=== PATIENT | female | born 1965 | race Caucasian/White ===

== ENCOUNTER 2025-05-28 05:15 | Inpatient (IN) | payer BC, SELFPAY ==
[2025-05-27 19:08] VITALS: BP 94/66
[2025-05-27 19:42] LABS: Urine Character Clear (Clear)
[2025-05-27 19:49] LABS: Urine Squamous Cell 0-2 /LPF (Few)
[2025-05-27 19:50] LABS: Urine Red Blood Cell 70-80 /HPF (0-2)
[2025-05-27 19:57] LABS: ALT (SGPT) 22 U/L (0-35); AST (SGOT) 31 U/L (14-36); Albumin 4.9 g/dl (3.5-5.0); Alkaline Phosphatase 84 U/L (38-126); Blood Urea Nitrogen 19 mg/dl (7-17); Calcium 9.9 mg/dl (8.4-10.2); Carbon Dioxide 19 mmol/L (22-30); Chloride 108 mmol/L (98-107); Glucose 128 mg/dl (70-99); Lipase 85 U/L (23-300); Potassium 4.4 mmol/L (3.5-5.1); Sodium 137 mmol/L (135-145); Total Protein 8.2 g/dl (6.3-8.2); eGFR 47.08
[2025-05-27 19:59] LABS: Hematocrit 43.5 % (37.0-47.0); Hemoglobin 15.1 g/dL (12.0-16.0); Mean Corp Hgb Conc. 34.7 g/dL (33.0-37.0); Mean Corpuscular Volume 95.6 fL (81.0-99.0); Red Cell Dist. Width 12.9 % (11.5-14.5)
[2025-05-27 20:00] LABS: Nucleated Red Blood Cells % 0 %
[2025-05-27] MEDS: ZOFRAN 4 MG IV (21:46)
[2025-05-27] MEDS: DILAUDID 0.5 MG IV (21:47)
[2025-05-27] MEDS: NSS 500 IV (21:47)
[2025-05-27 21:50] VITALS: BP 122/62
[2025-05-27 22:00] VITALS: BP 107/59
[2025-05-27] MEDS: SOLU-CORTEF 200 MG IV (22:10)
[2025-05-27] MEDS: OMNIPAQUE 50 ML PO (22:10)
[2025-05-27 23:00] VITALS: BP 109/62
[2025-05-27] MEDS: ZOSYN 100 IV (23:04)
[2025-05-27] MEDS: BENADRYL 50 MG IV (23:13)
--- NOTE | 2025-05-27 23:47 | ED.GENMED ---
History of Present Illness
<Edelmira Paez NP - Last Filed: 05/28/25 16:27>
General
Chief Complaint: Abdominal Pain
Source: patient
Exam Limitations: none
Time Seen by Provider: 05/27/25 21:17
Nursing documentation reviewed up to this point in time: agreed with
History of Present Illness
History of Present Illness:
Patient to ED wtih complaint of worsening left sided abd. pain. Symptoms started on tuesday but pain was intermittent. SHe was seen on Tuesday in ED in [place]. Had CT of abd completed - reports no findings to explain her pain. SHe was plac ed on
Cipro for suspected UTI. States pain has continued to worsen. Pain is now constant. +nausea, no v/d. Brought to ED by family for eval.
Past History
<Edelmira Paez NP - Last Filed: 05/28/25 16:27>
Past History
ED Past Medical History: CHF and Other (cardiomyopathy)
ED Past Surgical History: Other (splenectomy)
Social History
Tobacco: Non-smoker
Alcohol: None
Personal:
Living: with family
Employment: Employed
Family History
Family History: Negative Diabetes, Hypertension, Early CAD, Asthma or Cancer
Review of Systems
<Edelmira Paez NP - Last Filed: 05/28/25 16:27>
Review of Systems
Allergies reviewed?: Yes
All Other Systems: ROS reviewed and negative except as documented in HPI and ROS
Constitutional: Reports no symptoms
EENT: Reports no symptoms
Respiratory: Reports no symptoms
Cardiac: Reports no symptoms
ABD/GI: Reports abdominal pain (left abd pain)
: Reports no symptoms
Musculoskeletal: Reports no symptoms
Skin: Reports no symptoms
Neurological: Reports weakness
Psychiatric: Reports no symptoms
Phy Exam
<Edelmira Paez NP - Last Filed: 05/28/25 16:27>
General Physical Exam
General Presentation: well appearing and no apparent distress
General age: appears stated age
General Skin: warm and dry
General Habitus: normal
General Mental: alert
General Hydration: appears well hydrated
Cardiovascular Exam
Cardiovascular Exam: regular rate/rhythm and no edema
Pulmonary Exam
Pulmonary Exam: lungs clear and no respiratory distress
Gastrointestinal Exam
Gastrointestinal Exam: normal bowel sounds, soft, no organomegaly, no pulsatile mass, non distended and no cva tenderness
Palpation: left upper quadrant: Moderate tenderness, left lower quadrant: Moderate tenderness, right upper quadrant: No tenderness and right lower quadrant: No tenderness
Musculoskeletal Exam
Musculoskeletal Exam: full ROM and neuro vasc intact
Skin Exam
Skin Exam: normal color, warm/dry and no rash
Psychiatric Exam
Psychiatric Exam: normal mood/affect
Course
<Edelmira Paez PACKING ATTENDANT - Last Filed: 05/28/25 16:27>
Orders/Labs/Results
Orders:
Orders
05/27/25 19:30
Complete Blood Count/With Diff Urgent
Comprehensive Metabolic Panel Urgent
Lactic Acid Urgent
Lipase Urgent
Urine Microscopic Reflex Cult Urgent
Urine Reflex Culture from UA [Urinalysis Reflex To Culture] Urgent
Date Specimen was Collected: 05/27/25
Time Specimen was Collected: 19:12
Urine Culture Urgent
ARLYN Source: U
Specimen Description:
Date Specimen was Collected: 05/27/25
Time Specimen was Collected: 19:12
05/27/25 21:37
0.9% Sodium Chloride 500 ml [Nss] 500 ml IV BOLUS
HYDROmorphone [Dilaudid] 0.5 mg IV NOW STA
05/27/25 21:43
Ondansetron Injectable [Zofran] 4 mg .ROUTE .[facility]
05/27/25 21:46
Ondansetron Injectable [Zofran] 4 mg IV NOW STA
05/27/25 22:01
Diphenhydramine [Benadryl] 50 mg IV NOW STA
Hydrocortisone Sod Succinate [Solu-Cortef] 200 mg IV NOW STA
Iohexol [Omnipaque] See Protocol PO NOW STA
05/27/25 22:31
Piperacillin/Tazo 4.5 Gram [Zosyn] 4.5 gram in 100 ml IV NOW
05/27/25 22:54
Vancomycin [Vancocin] 1,500 mg 0.9% Sodium Chloride 500 ml [Nss] 500 ml IV NOW
05/28/25 00:10
CT Abd/pel W Iv And Oral Contr Urgent
Reason For Exam: left sided abd pain
05/28/25 02:38
Tamsulosin [Flomax] 0.4 mg PO NOW STA
05/28/25 04:38
Admit/Transfer Patient As Directed
Co-Sign Provider:
Level of Care: Inpatient admission
Assign to:: Medical/Surgical
Physician / Group: Freddie/Hospitalist
Diagnosis: UTI with obstructing renal stone 5 mm, left-sided hydroureteronephrosis
Reason for Hospitalization: UTI with obstructing renal stone 5 mm, left-sided hydroureteronephrosis
Expected length of stay greater than two midnights?: Yes
ELOS- Estimated Length of Stay in days: 3
I certify the patient meets the requirements for IP care: Yes
PRN Pain Medication Management As Directed
May give lesser potent ordered pain med per pt: Yes
preference::
Protocol:: Medication orders for pain may be administered in a
manner that supports deferring to patient preference
when the pt is:
- Requesting an ordered lesser potent pain medication.
Least to most potent pain medications are defined
as: acetaminophen < NSAID < tramadol < opioids
(morphine, oxycodone, hydromorphone).
- Requesting a lesser dose of the same medication IF
ORDERED.
- Requesting a less intrusive route of administration
if both routes are prescribed by the provider (PO <
IV).
05/28/25 04:42
Code Status As Directed
Resuscitation Status: Full Code
05/28/25 05:21
0.9% Sodium Chloride 500 ml [Nss] 500 ml IV 50 mls/hr
Bisacodyl [Dulcolax] 10 mg RECTAL [id number] PRN
Docusate W/Senna [Senokot-S] 1 tablet PO BIDPRN PRN
HYDROmorphone [Dilaudid] 0.5 mg IV Q4HPRN PRN
Ondansetron Injectable [Zofran] 4 mg IV Q6HPRN PRN
Polyethylene Glycol Powder [Miralax] 17 grams PO DAILYPRN PRN
05/28/25 05:21
UROLOGY CONSULT Routine
Consulting Provider: Rj Saleh
Was physician already notified: Yes
Comment: obstructing kidney stone, hydroureteronephr, UTI, splenectomy hx
Activity As Directed
Activity Level: As Tolerated
Pneumatic Compression Sleeves As Directed
Type: Knee high
Vital Signs As Directed
Frequency: Per unit guidelines
Pulse Ox/spot Check [RESP] Routine
Quantity: 1
DX Deep Vein Thrombosis Video Routine
05/28/25 05:41
Basic Metabolic Panel IN AM
Complete Blood Count/With Diff IN AM
05/28/25 Breakfast
NPO
Allow oral meds: Yes
Allow clear liquids: No
Piperacillin/Tazo 3.375 Gram [Zosyn] 3.375 gram in 50 ml IV Q6H
05/28/25 08:00
Bupropion(24Hr)Extended Releas [WELLBUTRIN XL (24 hour extended release)] 150 mg PO DAILY
Carvedilol [Coreg] 25 mg PO BID
Tamsulosin [Flomax] 0.4 mg PO DAILY
05/28/25 12:00
Sacubitril 24/Valsartan 26 [Entresto 24 mg/26 mg] 1 tab PO BID
Abnormal Lab Results
05/27/25
19:30
WBC 14.8 H 10^3/uL
(4.8-10.8)
MCH 33.2 H pg
(27.0-31.0)
Absolute Neuts (auto) 13.0 H 10^3/uL
(1.4-6.5)
Absolute Lymphs (auto) 1.1 L 10^3/uL
(1.2-3.4)
Neutrophils % 87.6 H %
(42.2-75.2)
Lymphocytes % 7.4 L %
(20.5-51.1)
Chloride 108 H mmol/L
(98-107)
Carbon Dioxide 19 L mmol/L
(22-30)
BUN 19 H mg/dl
(7-17)
Creatinine 1.3 H mg/dL
(0.6-1.0)
Glucose 128 H mg/dl
(70-99)
Lactic Acid 2.1 H mmol/L
(0.7-2.0)
Urine Ketones 3+ A
(Negative)
Ur Occult Blood Reflex 4+ A
(Negative)
Leukocyte Esterase Rfl 1+ A
(Negative)
Urine RBC 70-80 A /HPF
(0-2)
Urine Bacteria (Reflex) Moderate A
(Negative)
Urine Albumin (Reflex) 2+ A
(Neg - Trace)
05/27/25 19:30
05/27/25 19:30
Vital Signs
Initial and Last Documented VS:
Initial Vital Signs
Temp Pulse Resp BP Pulse Ox
98.0 F 81 20 94/66 99
05/27/25 19:08 05/27/25 19:08 05/27/25 19:08 05/27/25 19:08 05/27/25 19:08
Last Documented Vital Signs
Temp Pulse Resp BP Pulse Ox
97.8 F 70 12 88/52 99
05/28/25 15:00 05/28/25 15:00 05/28/25 15:00 05/28/25 15:00 05/28/25 15:00
<Dave Garcia, DO - Last Filed: 05/28/25 02:43>
Orders/Labs/Results
Orders:
Orders
05/27/25 19:30
Complete Blood Count/With Diff Urgent
Comprehensive Metabolic Panel Urgent
Lactic Acid Urgent
Lipase Urgent
Urine Microscopic Reflex Cult Urgent
Urine Reflex Culture from UA [Urinalysis Reflex To Culture] Urgent
Date Specimen was Collected: 05/27/25
Time Specimen was Collected: 19:12
Urine Culture Urgent
ARLYN Source: U
Specimen Description:
Date Specimen was Collected: 05/27/25
Time Specimen was Collected: 19:12
05/27/25 21:37
0.9% Sodium Chloride 500 ml [Nss] 500 ml IV BOLUS
HYDROmorphone [Dilaudid] 0.5 mg IV NOW STA
05/27/25 21:43
Ondansetron Injectable [Zofran] 4 mg .ROUTE .[facility]
05/27/25 21:46
Ondansetron Injectable [Zofran] 4 mg IV NOW STA
05/27/25 22:01
Diphenhydramine [Benadryl] 50 mg IV NOW STA
Hydrocortisone Sod Succinate [Solu-Cortef] 200 mg IV NOW STA
Iohexol [Omnipaque] See Protocol PO NOW STA
05/27/25 22:31
Piperacillin/Tazo 4.5 Gram [Zosyn] 4.5 gram in 100 ml IV NOW
05/27/25 22:54
Vancomycin [Vancocin] 1,500 mg 0.9% Sodium Chloride 500 ml [Nss] 500 ml IV NOW
05/28/25 00:10
CT Abd/pel W Iv And Oral Contr Urgent
Reason For Exam: left sided abd pain
05/28/25 02:38
Tamsulosin [Flomax] 0.4 mg PO NOW STA
05/28/25 04:38
Admit/Transfer Patient As Directed
Co-Sign Provider:
Level of Care: Inpatient admission
Assign to:: Medical/Surgical
Physician / Group: Freddie/Hospitalist
Diagnosis: UTI with obstructing renal stone 5 mm, left-sided hydroureteronephrosis
Reason for Hospitalization: UTI with obstructing renal stone 5 mm, left-sided hydroureteronephrosis
Expected length of stay greater than two midnights?: Yes
ELOS- Estimated Length of Stay in days: 3
I certify the patient meets the requirements for IP care: Yes
PRN Pain Medication Management As Directed
May give lesser potent ordered pain med per pt: Yes
preference::
Protocol:: Medication orders for pain may be administered in a
manner that supports deferring to patient preference
when the pt is:
- Requesting an ordered lesser potent pain medication.
Least to most potent pain medications are defined
as: acetaminophen < NSAID < tramadol < opioids
(morphine, oxycodone, hydromorphone).
- Requesting a lesser dose of the same medication IF
ORDERED.
- Requesting a less intrusive route of administration
if both routes are prescribed by the provider (PO <
IV).
05/28/25 04:42
Code Status As Directed
Resuscitation Status: Full Code
05/28/25 05:21
0.9% Sodium Chloride 500 ml [Nss] 500 ml IV 50 mls/hr
Bisacodyl [Dulcolax] 10 mg RECTAL [id number] PRN
Docusate W/Senna [Senokot-S] 1 tablet PO BIDPRN PRN
HYDROmorphone [Dilaudid] 0.5 mg IV Q4HPRN PRN
Ondansetron Injectable [Zofran] 4 mg IV Q6HPRN PRN
Polyethylene Glycol Powder [Miralax] 17 grams PO DAILYPRN PRN
05/28/25 05:21
UROLOGY CONSULT Routine
Consulting Provider: Rj Saleh
Was physician already notified: Yes
Comment: obstructing kidney stone, hydroureteronephr, UTI, splenectomy hx
Activity As Directed
Activity Level: As Tolerated
Pneumatic Compression Sleeves As Directed
Type: Knee high
Vital Signs As Directed
Frequency: Per unit guidelines
Pulse Ox/spot Check [RESP] Routine
Quantity: 1
DX Deep Vein Thrombosis Video Routine
05/28/25 05:41
Basic Metabolic Panel IN AM
Complete Blood Count/With Diff IN AM
05/28/25 Breakfast
NPO
Allow oral meds: Yes
Allow clear liquids: No
Piperacillin/Tazo 3.375 Gram [Zosyn] 3.375 gram in 50 ml IV Q6H
05/28/25 08:00
Bupropion(24Hr)Extended Releas [WELLBUTRIN XL (24 hour extended release)] 150 mg PO DAILY
Carvedilol [Coreg] 25 mg PO BID
Tamsulosin [Flomax] 0.4 mg PO DAILY
05/28/25 12:00
Sacubitril 24/Valsartan 26 [Entresto 24 mg/26 mg] 1 tab PO BID
Abnormal Lab Results
05/27/25
19:30
WBC 14.8 H 10^3/uL
(4.8-10.8)
MCH 33.2 H pg
(27.0-31.0)
Absolute Neuts (auto) 13.0 H 10^3/uL
(1.4-6.5)
Absolute Lymphs (auto) 1.1 L 10^3/uL
(1.2-3.4)
Neutrophils % 87.6 H %
(42.2-75.2)
Lymphocytes % 7.4 L %
(20.5-51.1)
Chloride 108 H mmol/L
(98-107)
Carbon Dioxide 19 L mmol/L
(22-30)
BUN 19 H mg/dl
(7-17)
Creatinine 1.3 H mg/dL
(0.6-1.0)
Glucose 128 H mg/dl
(70-99)
Lactic Acid 2.1 H mmol/L
(0.7-2.0)
Urine Ketones 3+ A
(Negative)
Ur Occult Blood Reflex 4+ A
(Negative)
Leukocyte Esterase Rfl 1+ A
(Negative)
Urine RBC 70-80 A /HPF
(0-2)
Urine Bacteria (Reflex) Moderate A
(Negative)
Urine Albumin (Reflex) 2+ A
(Neg - Trace)
05/27/25 19:30
05/27/25 19:30
Vital Signs
Initial and Last Documented VS:
Initial Vital Signs
Temp Pulse Resp BP Pulse Ox
98.0 F 81 20 94/66 99
05/27/25 19:08 05/27/25 19:08 05/27/25 19:08 05/27/25 19:08 05/27/25 19:08
Last Documented Vital Signs
Temp Pulse Resp BP Pulse Ox
97.8 F 70 12 88/52 99
05/28/25 15:00 05/28/25 15:00 05/28/25 15:00 05/28/25 15:00 05/28/25 15:00
<Edelmira Paez NP - Last Filed: 05/28/25 16:27>
*Pulse Oximetry
SaO2: 99
Oxygen Mode of Delivery: Room air
Patient hypoxic: no
*Critical Care Note
Total Time (30-74mins, 75-104mins- exclusive of procedures): Not Applicable
<Edelmira Paez NP - Last Filed: 05/28/25 16:27>
Update Note
Update Note:
Patient to ED wtih complaint of worsening left sided abd. pain. Pain started on Tuesday intermittently and is now constant. +nause, no vomiting or diarrhea. Denies fever. Labs reviewed. WBC 14 with lactic 2.1 IV fluids as well as antibiotics
ordered. VSS in ED, she remains awake and alert. Comfortable after IV pain medications. CT of abdomen/pelvis is pending.
ED Attending Note
<Edelmira Paez NP - Last Filed: 05/28/25 16:27>
-
Portions of this chart may have been created with voice recognition software.� Occasional wrong word or��sound alike� substitutions may have occurred due to the inherent limitations of voice recognition software.
<Dave Garcia DO - Last Filed: 05/28/25 02:43>
ED Attending Note
Patient seen and examined by attending physician: Yes
I performed the substantive portion of visit, reviewed & personally made and approve the management plan that is documented in note by myself or RICHAR.: Yes
ED Attending Note:
I have seen and evaluated the patient with a [id number] encounter. I have spoken to the advance practicer provider and involved in the medical history, the physical exam, medical decision making.
Evaluation and management service: agree unless noted differently below.
Results interpretation: agree unless noted differently below.
Focused HPI: 60-year-old female presenting with left lower quadrant pain. Initially, the pain was coming and going but now is pretty constant. This is associated with nausea. She denies fevers. Patient states this is similar to prior kidney stone
Physical exam: Sitting bed comfortably. No peritonitic signs
Medical Decision Making: CT shows distal left ureteral stone. Patient was already started on Zosyn by the PACKING ATTENDANT. Will give dose of Flomax and admit for pain control and urology evaluation
Discharge Plan
Departure
Patient Disposition: Admit
Date of Disposition: 05/28/25
Time of Disposition: 02:42
Presentation/result/management discussed w/ accepting MD/DO: Hospitalist
Patient with high blood pressure during this ER visit?: No
Condition: Fair
Covid-19: Not Applicable
Discharge Problem:
Kidney stone on left side
Interventions
Interventions:
*Risk Screen - Suicide Last Done: 05/27/25 21:52
*General Assessment Last Done: 05/27/25 19:08
*Neglect/Abuse Screening Last Done: 05/27/25 21:52
*ED- Fall Risk Assessment Last Done: 05/27/25 21:52
*ED COVID-19 Vaccine History Last Done: 05/27/25 21:52
*Nursing Disposition Last Done: 05/28/25 07:05
ZT-Stsgsq-Pgvmvtiyus Assessment Last Done: 05/27/25 23:10
Discharge Date and Time
Discharge Date/Time: 05/28/25 08:14
[2025-05-28] VITALS (12 sets, daily range): BP systolic 88–114; BP diastolic 50–68; BMI 23.4
[2025-05-28] MEDS: VANCOCIN 530 MG IV (00:24)
[2025-05-28] MEDS: FLOMAX 0.4 MG PO ×2 (02:45→18:16)
--- NOTE | 2025-05-28 04:06 | HPS.HSE ---
Addendum entered and electronically signed by Kalpana Frazier DO 05/28/25 05:07:
#BRAYAN - creat 1.3 (last creat 0.8), gentle IV hydration due to hx of cardiomyopathy, renally dose IV abx, and repeat BMP in am
Original Note:
Family Physician
-
Family Physician: NOT KNOW UNKNOWN - PT DOES
Chief Complaint
-
abdominal pain, CVA tenderness on right, and vomiting
History of Present Illness
The patient is a 60-year-old woman with past medical history significant for cardiomyopathy and splenectomy for splenic artery aneurysm in 2007, who presented to the emergency department secondary to worsening left lower quadrant abdominal pain
associated with left flank pain that she has had over the past 3 days. [place] care center there, and they diagnosed her with UTI and constipation. They told her to have a clear liquid diet for which she has been
on for the past 2 days with very little oral intake. She was also taking a bowel regimen for constipation. Over the past 24 hours her abdominal pain has worsened in the left lower quadrant associated with left flank pain and vomiting. In the ED,
CT scan of the abdomen and pelvis positive for 5 mm obstructing distal left ureteral calculus immediately proximal to the UVJ with mild to moderate left-sided hydroureteronephrosis and mild perinephric stranding. Lactate 2.1 WBC 14.8
Treatment in the ED-IV fluid bolus 500 mL, IV Dilaudid 0.5, IV Zofran 4 mg, IV Benadryl 50 mg, Solu-Cortef 200 mg IV prior to contrast, IV Zosyn 7, IV vancomycin, Flomax 0.4 mg
Medical History
Past Medical History
Past Medical History: Reports CHF (Idiopathic cardiomyopathy) and Other (Left bundle branch block, splenic artery aneurysm)
Past Surgical History: Reports Other (Splenectomy)
Social History
Tobacco: Non-smoker
Alcohol: None
Personal:
Living: With Family
Employment: Employed
Family History
Family History: Not pertinent
Allergies / Home Medications
Allergies reflects when Allergies were last updated in [facility].
Home Medications with original date entered in [facility]
Allergy/Medication List:
Allergies
Allergy/AdvReac Type Severity Reaction Status Date / Time
latex Allergy Rash Verified 05/27/25 19:07
levofloxacin (From Levaquin) Allergy Unknown Verified 05/27/25 19:07
Shellfish *RETIRED-08/08/12 Allergy Anaphylaxis Verified 05/27/25 19:07
nuts Allergy Anaphylaxis Uncoded 05/27/25 19:07
Home Medications
carvedilol 25 mg tablet (Coreg) 25 mg PO BID 10/27/12
cetirizine 10 mg tablet 10 mg PO HS 10/27/12
promethazine 25 mg tablet 25 mg PO Q6HPRN PRN nausea and vomiting #10 tabs 03/30/14
bupropion HCl 150 mg 24 hr tablet, extended release 150 mg PO DAILY 05/28/25
cholecalciferol (vitamin D3) 25 mcg (1,000 unit) capsule (Vitamin D3) 25 mcg PO DAILY 05/28/25
sacubitril 24 mg-valsartan 26 mg tablet (Entresto) 1 tab PO BID 05/28/25
Review of Systems
-
A 12 point ROS was completed and negative except as noted: Yes
Physical Exam
Vital Signs
Vital Signs
Temp Pulse Resp BP Pulse Ox
97.9 F 74 14 113/68 97
05/27/25 23:20 05/28/25 00:15 05/28/25 00:15 05/28/25 00:00 05/28/25 00:15
Physical Exam
General: Well Developed, Well Nourished, No Apparent Distress, Comfortable and Conversant
HEENT: NormoCephalic, Anicteric and Moist mucous membranes
Respiratory: Clear
Cardiac: S1/S2 and Regular Rhythm
GI: Soft and Tender (Tenderness in the left lower quadrant and left CVA tenderness)
Musculoskeletal: No Clubbing, No Cyanosis and No Edema
Skin: Warm and Dry
Neuro: AO x 3 and No Motor Deficits
Psych: Calm
Laboratory Results
-
05/27/25 19:30
05/27/25:
Laboratory Results
Lactic Acid 2.1 mmol/L (0.7-2.0) H 05/27/25:30
Total Bilirubin 1.3 mg/dl (0.2-1.3) 05/27/25
AST 31 U/L (14-36) 05/27/25
ALT 22 U/L (0-35) 05/27/25
Alkaline Phosphatase 84 U/L (38-126) 05/27/25:
Lipase 85 U/L (23-300) 05/27/25:
Data Reviewed
-
CT Scan: Report Reviewed by me (preliminary report)
Impression/Plan
-
IMPRESSION:The patient is a 60-year-old woman with past medical history significant for cardiomyopathy and splenectomy for splenic artery aneurysm in 2007, who presented to the emergency department secondary to worsening left lower quadrant
abdominal pain associated with left flank pain that she has had over the past 3 days. [place] the [place] urgent care center there, and they diagnosed her with UTI and constipation. They told her to have a clear liquid diet for
which she has been on for the past 2 days with very little oral intake. She was also taking a bowel regimen for constipation. Over the past 24 hours her abdominal pain has worsened in the left lower quadrant associated with left flank pain and
vomiting. In the ED, CT scan of the abdomen and pelvis positive for 5 mm obstructing distal left ureteral calculus immediately proximal to the UVJ with mild to moderate left-sided hydroureteronephrosis and mild perinephric stranding. Lactate 2.1
WBC 14.8
Treatment in the ED-IV fluid bolus 500 mL, IV Dilaudid 0.5, IV Zofran 4 mg, IV Benadryl 50 mg, Solu-Cortef 200 mg IV prior to contrast, IV Zosyn 7, IV vancomycin, Flomax 0.4 mg
# Nephrolithiasis associated with perinephritic stranding and hydroureteronephrosis, with concern for urinary tract infection, in the setting of leukocytosis and splenectomy history
-Urinalysis positive for 1+ leuk esterase, moderate bacteria, 70-80 RBCs
- Continue IV Zosyn for now
-Consultation to urology-placed by ED physician
-Continue n.p.o. status pending urology recommendations
-IV fluids, gentle hydration given history of cardiomyopathy
-Flomax, continue for now
-CT scan of the abdomen and pelvis positive for 5 mm obstructing distal left ureteral calculus immediately proximal to the UVJ, with mild to moderate left-sided hydroureteronephrosis and mild perinephric stranding.
# History of splenectomy, splenic artery aneurysm
- Continue broad-spectrum antibiotic coverage
# Cardiomyopathy
- Continue Coreg
- Continue Entresto
DVT prophylaxis-SCDs
Full code
[2025-05-28] MEDS: FLUSH (NSS) 1 FLUSH IV (05:43)
[2025-05-28 05:54] LABS: Hematocrit 39.4 % (37.0-47.0); Hemoglobin 13.4 g/dL (12.0-16.0); Mean Corp Hgb Conc. 34.0 g/dL (33.0-37.0); Mean Corpuscular Volume 97.8 fL (81.0-99.0); Nucleated Red Blood Cells % 0 %; Platelet Count 221 10^3/uL (130-400); Red Cell Dist. Width 13.1 % (11.5-14.5)
[2025-05-28] MEDS: NSS 500 IV (06:10)
[2025-05-28] MEDS: ZOSYN 50 IV ×3 (06:16→18:16)
[2025-05-28 06:19] LABS: Blood Urea Nitrogen 18 mg/dl (7-17); Calcium 9.1 mg/dl (8.4-10.2); Carbon Dioxide 15 mmol/L (22-30); Chloride 111 mmol/L (98-107); Estimated Creatinine Clearance 34 ml/min; Glucose 122 mg/dl (70-99); Potassium 4.4 mmol/L (3.5-5.1); Sodium 137 mmol/L (135-145); eGFR 39.65
--- NOTE | 2025-05-28 08:56 | W.PN.UPDATE ---
Update Note
Progress Note Update
Obstructing distal left ureteral stone w/ hydronephrosis
Leukocytosis
BRAYAN
Non-toxic, afebrile
Denies LLQ pelvic pain this AM
Discussed inpatient MET x24 hrs w/ surgical intervention if no passage vs. surgical intervention today.
Plan:
- Continue tamsulosin 0.4 mg qhs to facilitate stone passage
- Generous PO fluid intake (minimize IVF due to h/o iatrogenic cardiomyopathy)
- Continue IV antibiotics pending UCx
- NPO@MN - possible OR tomorrow for left ULS if no stone passage
- KUB this AM (ordered)
D/w patient and mother.
[2025-05-28] MEDS: COREG 25 MG PO (09:20)
[2025-05-28] MEDS: WELLBUTRIN XL (24 hour extended release) 150 MG PO (09:21)
--- NOTE | 2025-05-28 17:03 | CM ---
Patient with Dx Obstructing distal left ureteral stone w/ hydronephrosis. Plan possible OR tomorrow for left ULS if no stone passage. Room air. Receiving IV Abx.
Spoke with patient who resides with her in a 2 story house with 3 steps at entrance.
The patient was independent in ADLs and ambulation.
She was active and working.
The patient has no DME or prior VN.
PCP - [facility]
Pharmacy - [address], [place]
CM continuing to follow.
Plan home.
[2025-05-28] MEDS: COREG PO (19:36)
[2025-05-29] VITALS (16 sets, daily range): BP systolic 89–119; BP diastolic 46–62; BMI 23.0
[2025-05-29] MEDS: ZOSYN 50 IV ×5 (00:27→23:27)
--- NOTE | 2025-05-29 07:20 | W.PN.URO.CBU ---
Today's Communication / Plan
-
To OR for left ULS
Surgical consent signed on front of chart
Continue IV Zosyn per Hospitalist
D/w patient and mother this AM.
Assessment / Plan
-
Obstructing distal left ureteral stone w/ hydronephrosis
Leukocytosis
BRAYAN
05/28: KUB => negative
05/28: CT Pelvis => persistent 5 mm distal left ureteral stone w/ minimal hydroureteronephrosis
Diagnosis
-
Date of Service: May 29, 2025
-
Patient Diagnosis:
Obstructing distal left ureteral stone w/ hydronephrosis
Leukocytosis
BRAYAN
Subjective
-
Denies significant pain.
CT Pelvis yesterday confirmed persistent left UVJ stone.
Voiding w/o minimal suprapubic pressure.
Objective
-
Vital Signs
Temp Pulse Resp BP Pulse Ox
98.4 F 72 18 113/52 97
05/29/25 07:51 05/29/25 07:51 05/29/25 07:51 05/29/25 07:51 05/29/25 07:51
Intake and Output
05/28/25 05/29/25 05/30/25
06:59 06:59 06:59
Intake Total 1080 / 1080
Output Total 1999 650 / 650
Balance -920 / -920 -650 / -650
Intake:
Oral fluids 1080 / 1080
Output:
Urine, Voided 1999 650 / 650
Laboratory Results
05/28/25 05:41
05/28/25 05:41
Physical Exam
-
General - well developed, well nourished, no acute distress
Abdomen - soft, non-tender, no CVAT
Skin - warm & dry with no rash
Neuro - AOx3, no motor deficits
Extremities - no clubbing, no cyanosis, no edema
Care Review
Data Reviewed
Discussed with: Hospitalist, Nursing and Family
CT Scan: Report Pers Reviewed and Image Pers Reviewed
Total Time Spent with Patient (in minutes): 45
[2025-05-29] MEDS: WELLBUTRIN XL (24 hour extended release) 150 MG PO (07:42)
[2025-05-29] MEDS: COREG 25 MG PO ×2 (07:42→21:01)
--- NOTE | 2025-05-29 08:27 | W.SUR.PREOP ---
Pre-Operative Surgical Note
-
I have examined this patient prior to the performance of the scheduled procedure.
The patient's condition is unchanged from the time of the current History and
Physical and the patient is able to undergo the scheduled procedure.
Detailed discussion including SDM had w/ patient regarding risks, benefits, alternatives, and potential complications of ureteroscopy/laser lithotripsy/stone extraction/stent placement.
Potential risks and complications reviewed - including but not limited to urosepsis, bleeding, ureteral/bladder injury, risk of ureteral stricture formation, need for additional procedures/surgeries.
To OR for left ULS this afternoon (Dr. Monk)
Surgical consent signed on chart
--- NOTE | 2025-05-29 10:01 | W.PN.HOSP.TC ---
Addendum entered and electronically signed by Shaka Vyas MD 05/29/25 16:35:
[facility] Urology Dr Saleh via TT
She is now post cysto;OR report pending
Ok for dc from urological standpoint.
UCX neg for growth. Suspect leukocytosis is reaction to obstruction stone. Will dc on oral keflex for 5days.
Pt to repeat Cr and CBC in 2-3 days.
Original Note:
Today's Communication/Plan
-
Continue Zosyn
OR today
Assessment / Plan
Assessment / Plan
# Nephrolithiasis associated with perinephritic stranding and hydroureteronephrosis, with concern for urinary tract infection, in the setting of leukocytosis and splenectomy history
-Urinalysis positive for 1+ leuk esterase, moderate bacteria, 70-80 RBCs
- Continue IV Zosyn for now. Urine culture pending
-Flomax, continue for now
-CT scan of the abdomen and pelvis positive for 5 mm obstructing distal left ureteral calculus immediately proximal to the UVJ, with mild to moderate left-sided hydroureteronephrosis and mild perinephric stranding.
- Appreciate urology input-for OR today for stone treatment.
# BRAYAN
Cr up from her baseline of 0.8 remote past
No prior hx of CKD
Suspect Obstructive uropathy
Follow Cr after stone managment.
# History of splenectomy, splenic artery aneurysm
- Continue broad-spectrum antibiotic coverage
# Cardiomyopathy
- Continue Coreg
- Continue Entresto
DVT prophylaxis-SCDs
Full code
Anticipated Discharge: Within 24 hours
Subjective/Interval History
-
Date of Service: May 29, 2025
No abdominal pain today. No nausea vomiting. No fever or chills. Await OR for cystoscopy and stone treatment.
Denies shortness of breath or chest pain.
Objective Data
-
Vital Signs:
Vital Signs
Temp Pulse Resp BP Pulse Ox
98.4 F 72 18 113/52 97
05/29/25 07:51 05/29/25 07:51 05/29/25 07:51 05/29/25 07:51 05/29/25 07:51
I&O
05/28/25 05/29/25 05/30/25
06:59 06:59 06:59
Intake Total 1080 / 1080
Output Total 1999 650 / 650
Balance -920 / -920 -650 / -650
Physical Exam
-
General: Comfortable
Respiratory: Non Labored Respirations; Negative Accessory Resp Muscle Use
GI: Soft and Nontender
Neuro: AO x 3
Data Reviewed
-
Labs: Labs Reviewed by me (from yesterday)
--- NOTE | 2025-05-29 11:18 | CM ---
CM met with pt and spouse bedside
Plan for OR this afternoon for L. ULS
They noted possible plan for dc in the evening
Spouse will transport home and able to assist at home in recovery
No dc needs anticipated
Discharge Disposition- home, no needs anticipated
[2025-05-29] MEDS: DETROL LA 4 MG PO (17:03)
--- NOTE | 2025-05-29 18:00 | PTCARENOTE ---
Received patient from PACU at 1800. Patient very pleasant, AAOx3, no c/o pain. Patient voided in bathroom with minimal c/o burning. Patient ambulated in room with a steady gait. Patient tolerating PO fluids. Call yeager in reach, family at bedside.
[2025-05-29] MEDS: FLOMAX 0.4 MG PO (18:47)
[2025-05-29] MEDS: ZYRTEC 10 MG PO (21:01)
[2025-05-30 03:25] VITALS: BP 111/63
[2025-05-30] MEDS: ZOSYN 50 IV (05:38)
[2025-05-30 06:00] VITALS: BMI 22.7
[2025-05-30 06:51] LABS: Hematocrit 35.2 % (37.0-47.0); Hemoglobin 12.3 g/dL (12.0-16.0); Mean Corp Hgb Conc. 34.9 g/dL (33.0-37.0); Mean Corpuscular Volume 96.4 fL (81.0-99.0); Platelet Count 242 10^3/uL (130-400); Red Cell Dist. Width 13.1 % (11.5-14.5)
[2025-05-30 07:13] LABS: Blood Urea Nitrogen 16 mg/dl (7-17); Calcium 9.0 mg/dl (8.4-10.2); Carbon Dioxide 22 mmol/L (22-30); Chloride 111 mmol/L (98-107); Estimated Creatinine Clearance 65 ml/min; Glucose 152 mg/dl (70-99); Potassium 3.9 mmol/L (3.5-5.1); Sodium 141 mmol/L (135-145); eGFR > 60.00
[2025-05-30 07:20] VITALS: BP 110/58
[2025-05-30] MEDS: FLOMAX 0.4 MG PO (07:43)
[2025-05-30] MEDS: WELLBUTRIN XL (24 hour extended release) 150 MG PO (07:43)
[2025-05-30] MEDS: COREG 25 MG PO (07:43)
[2025-05-30 11:09] VITALS: BP 93/41
--- NOTE | 2025-05-30 14:45 | W.DCSUMMARY ---
Discharge Summary
Discharge Data
Date of Admission: 05/28/25
Date of Discharge: 05/30/25
-
Pending Results: No
Hospital Course
Primary diagnosis:
Obstructing left ureteral calculus with obstructive uropathy and possible UTI
Secondary diagnosis:
History of splenectomy
Splenic artery aneurysm
History of cardiomyopathy
Hospital course:
Patient presented with left flank pain with nausea vomiting. CT of abdomen pelvis showed 5 mm obstructing distal left ureteral calculus immediately proximal to the UV junction, with mild to moderate left-sided hydroureteronephrosis and mild
perinephric stranding.
She had associated leukocytosis and elevated creatinine of 1.5.
She was seen by urology and had a Left ureteroscopy with laser lithotripsy and stenting with resolution of her abdominal pain and also normalization of creatinine 2.8. She was put empirically on Zosyn. UA was positive for microscopic hematuria and
the white cells in the urine was 6-10. Urine culture came back negative. With leukocytosis of 17K and mild perinephric stranding unclear if it is just secondary to obstruction or underlying UTI. Her white count was improving while on antibiotics.
She was given 5 more days of Keflex antibiotic on discharge.
She has got history of cardiomyopathy. Coreg was continued but blood pressure was on the lower side to continue her Entresto plus also she had BRAYAN. She was advised to hold on Entresto and check blood pressure at home over the next couple of days
and if systolic is more than 100 to resume her Entresto. She was clinically compensated from cardiomyopathy on this admission.
Day of discharge she was afebrile, pulse 65, blood pressure 93/41. She had no dizziness. Chest was clear. Abdomen was soft. Heart sound S1 plus S2 regular without tachycardia. White count was 11.5 which was down and creatinine was 0.8 which was
down.
Consultants on board:
Urology-Dr. Dave Monk
Discharge Plan
-
Patient Disposition: Home (Routine Discharge)
Discharge Diagnosis/Procedures: Left obstructing ureteral stone s/p cysto
Diet: Regular
Activity: As tolerated
Driving Restrictions: As prior to admission
Blood Work: CBC and BMP blood work in 2-3 days - arrange it through your PCP or call our office tomorrow for a script if needed.
Referrals:
Dave Monk MD [Active, Urology]
Referral Note: call to schedule 'stent removal' during week of 06/10/25
UNKNOWN - PT DOES,NOT KNOW [Family Provider] - in less than 1 week
Prescriptions:
New
phenazopyridine 200 mg Tablet
200 mg PO TIDPRN PRN (Reason: dysuria) Qty: 9 0RF
cephalexin 500 mg capsule
500 mg PO TID Qty: 15 0RF
Continued
carvedilol [Coreg] 25 MG tablet
25 mg PO BID
cetirizine 10 MG tablet
10 mg PO HS
bupropion HCl 150 mg Tablet Extended Release 24 Hr
150 mg PO DAILY
cholecalciferol (vitamin D3) [Vitamin D3] 25 mcg (1,000 unit) Capsule
25 mcg PO DAILY
Held
Entresto 24-26 mg Tablet
1 tab PO BID
Hold Instructions: Resume on 06/03/25. till next BMP blood test shows improved Creatitine
Discontinued
promethazine 25 MG tablet
25 mg PO Q6HPRN PRN (Reason: nausea and vomiting) Qty: 10 0RF
Discharge Orders:
Discharge Patient (As Directed); Ordered 05/30/25
Ordered By: Shaka Vyas
Discharge Date and Time
Discharge Date/Time: 05/30/25 14:06
Print Language: [id number]
== END 2025-05-30 14:06 | disposition home or self-care (01) | DRG 660 ==
LOC: 2 SOUTH 05:15
PROVIDERS: Emergency Medicine; Specialist; ADMITTING PHYSICIAN Internal Medicine; ATTENDING PHYSICIAN Internal Medicine; EMERGENCY PHYSICIAN Student in an Organized Health Care Education/Training Program
PROC: 0TF78ZZ Fragmentation in Left Ureter, Via Natural or Artificial Opening Endoscopic (ICD-10-PCS; 2025-05-30)
PROC: 0T778DZ Dilation of Left Ureter with Intraluminal Device, Via Natural or Artificial Opening Endoscopic (ICD-10-PCS; 2025-05-30)
DX: N20.2 Calculus of kidney with calculus of ureter (principal); I42.8 Other cardiomyopathies; N13.6 Pyonephrosis; N17.9 Acute kidney failure, unspecified
CPT/HCPCS: 74018; 74176; 74177; 76000; 80048; 80053; 81003; 81015; 83605; 83690; 85025; 85027; 87086; 99285; C2617; Q9967

== ENCOUNTER → 2025-09-27 13:42 | Outpatient (REF) | payer BC, SELFPAY | LOC: HWWDC 13:42 | PROVIDERS: ATTENDING PHYSICIAN Registered Nurse | DX: Z12.31 Encounter for screening mammogram for malignant neoplasm of breast (principal) | CPT/HCPCS: 77063; 77067 ==